=== PATIENT | male | born 1970 | race Caucasian/White ===

== ENCOUNTER 2023-04-07 11:24 | Observation (INO) | payer SELFPAY ==
[2023-04-07] VITALS (7 sets, daily range): BP systolic 140–190; BP diastolic 80–110; PULSE 87–121; RESP 1–22; TEMP 36.8–37.3; O2SAT 97–99; BMI 25.1; BMI 21.9
--- NOTE | 2023-04-07 11:48 | CT_ITS ---
STUDY: CT CERVICAL SPINE WITHOUT CONTRAST REASON FOR EXAM: Male, 52 years old. History of fall. Neck pain. RADIATION DOSAGE (If Supplied By Facility): CTDIvol = ( 23.41 ) mGy, DLP = ( 521.74 ) mGycm TECHNIQUE: High resolution transaxial imaging was performed without contrast material. Sagittal and coronal images were reconstructed. Individualized dose optimization techniques were used for this CT. COMPARISON: None FINDINGS: Normal craniovertebral junction. Normal anterior atlantoaxial articulation. Normal odontoid process. Normal cervical lordosis. Normal vertebral bodies and posterior osseous elements. C2-3: Normal endplates. Normal disc height and morphology. Normal central canal and intervertebral neuroforamina. C3-4: Normal endplates. Normal disc height and morphology. Normal central canal and intervertebral neuroforamina. C4-5: Normal endplates. Normal disc height and morphology. Normal central canal and intervertebral neuroforamina. C5-6: Normal endplates. Normal disc height and morphology. Normal central canal and intervertebral neuroforamina. C6-7: Old fracture of the posterior spinous processes of the C7 vertebrae. C7-T1: Normal endplates. Normal disc height and morphology. Normal central canal and intervertebral neuroforamina. Normal visualized soft tissue structures. CT/Spine Cervical without Contras IMPRESSION: No acute abnormality is seen. Old fracture of the posterior aspect of the spinous processes of the C7 vertebrae. Electronically Signed: Roldan Narvaez MD at 13:00 EDT ,
--- NOTE | 2023-04-07 11:48 | CT_ITS ---
STUDY: CT BRAIN WITHOUT CONTRAST REASON FOR EXAM: Male, 52 years old. Head injury due to a fall. Loss of consciousness. RADIATION DOSAGE (If Supplied By Facility): CTDIvol = ( 44.99 ) mGy, DLP = ( 796.11 ) mGycm TECHNIQUE: Transaxial CT imaging of the brain was performed without administration of intravenous contrast material. Individualized dose optimization techniques were used for this CT. COMPARISON: No relevant priors. FINDINGS: Small scalp hematoma overlying the left posterior parieto-occipital bone. Normal calvarium. There is mild cerebral atrophy with widening of the extra-axial spaces and ventricular dilatation. Normal white matter tracts of the cerebral hemispheres. Normal basal ganglia and thalami. Normal brainstem. Normal cerebellum. There is no intracranial hemorrhage. There are no findings of an acute ischemic infarction. Mucosal thickening of the maxillary sinuses and ethmoid sinuses bilaterally. CT/Brain/Head without Contrast IMPRESSION: Chronic involutional changes of the brain. Small scalp hematoma overlying the left posterior parietal occipital bone. Mucosal thickening of the ethmoid and maxillary sinuses. Electronically Signed: Roldan Narvaez MD at 12:59 EDT ,
--- NOTE | 2023-04-07 11:48 | EKG12_ITS ---
Test Reason : FALL Blood Pressure : / mmHG Vent. Rate : 110 BPM Atrial Rate : 110 BPM P-R Int : 154 ms QRS Dur : 084 ms QT Int : 364 ms P-R-T Axes : 061 032 025 degrees QTc Int : 492 ms Sinus tachycardia Otherwise normal ECG No previous ECGs available Confirmed by DOMO CACREES, REI ([id number]), senior editor JUAN CARLOS BRISENO ([id number]) on 04/12/2023 9:11:56 AM Referred By: CANDICE Confirmed By:REI OLIVEROS MD
--- NOTE | 2023-04-07 11:50 | EX.ED.GENINJ ---
HPI History of Present Illness Chief Complaint: Fall Narrative Narrative: 52-year-old male found unconscious in the parking lot of . He is not sure how long he was down. He does not know if he passed out. Patient reportedly had some alcohol today but he denies this. He has a scrape to the back of his scalp. He appears to be a little confused because he does not know if he drove here or EMS drove him. Denies any injury to the extremities. Patient states he is not on any blood thinners. He denies drug use. He has not had any chest pain or shortness of breath. He denies visual complaints, dizziness, lightheadedness. He does not have any problem moving his extremities. PFSH PFSH Medical History no medical history Allergy/AdvReac Type Severity Reaction Status Date / Time No Known Allergies Allergy Verified 04/07/23 14:30 Family History no significant family his Surgical History no surgical history Social History Smoking Status: Current every day smoker tobacco type: smokeless tobacco ROS ROS ED Constitutional Constitutional ED: Denies chills or fever(s) Eyes Eyes: Denies change in vision ENT ENT ED: Denies rhinorrhea or sore throat Cardiovascular Cardiovascular: Denies chest pain or palpitations Respiratory/Chest Respiratory/Chest: Denies cough or dyspnea Gastrointestinal Gastrointestinal: Denies abdominal pain, nausea or vomiting Genitourinary Genitourinary ED: Denies dysuria or hematuria Musculoskeletal Musculoskeletal: Denies arthralgias Integumentary Denies abscess Neurologic Neurologic: Denies headache(s) or paresthesias Psychiatric Psychiatric: Denies anxiety or depression EXAM Physical Exam Const Vital Signs: 04/07/23 11:25 04/07/23 11:28 04/07/23 12:00 Temperature 98.9 F Temperature Source Temporal Pulse Rate 121 H Pulse Rate [Lying] 118 H Pulse Rate [Standing (for 1 minute prior to obtaining)] 117 H Respiratory Rate 1 L Respiratory Effort Normal Respiratory Depth Normal Respiratory Pattern Normal Blood Pressure 190/110 H Blood Pressure [Lying] 173/97 H Blood Pressure [Sitting (for 1 minute prior to obtaining)] 173/94 H Blood Pressure [Standing (for 1 minute prior to obtaining)] 162/101 H Blood Pressure Mean 136 Blood Pressure Mean [Lying] 122 Blood Pressure Mean [Sitting (for 1 minute prior to obtaining)] 120 Blood Pressure Mean [Standing (for 1 minute prior to obtaining)] 121 Pulse Ox 97 97 Oxygen Delivery Method Room Air Room Air 04/07/23 13:54 04/07/23 15:03 Temperature 98.3 F Temperature Source Temporal Pulse Rate 96 92 Pulse Rate [Lying] Pulse Rate [Standing (for 1 minute prior to obtaining)] Respiratory Rate 20 H 16 Respiratory Effort Respiratory Depth Respiratory Pattern Blood Pressure 167/93 H 161/91 H Blood Pressure [Lying] Blood Pressure [Sitting (for 1 minute prior to obtaining)] Blood Pressure [Standing (for 1 minute prior to obtaining)] Blood Pressure Mean 117 114 Blood Pressure Mean [Lying] Blood Pressure Mean [Sitting (for 1 minute prior to obtaining)] Blood Pressure Mean [Standing (for 1 minute prior to obtaining)] Pulse Ox 99 99 Oxygen Delivery Method Room Air Room Air Positive well nourished and unkempt General Appearance ED: unkempt and NAD HEENT Reports TM's clear HEENT Narrative: Scalp abrasion to the occiput approximately 4 cm and circular. No laceration. No skull deformity. Tympanic Membrane ED: Yes TM's clear Eyes PERRL and EOMs intact bilaterally Chest Wall inspection of chest normal Resp normal respiratory effort and clear to auscultation bilaterally Cardio regular rhythm Rate: tachycardic GI normal to inspection, nondistended, normoactive bowel sounds Back/Spine no thoracic nor lumbar tenderness Cervical Spine: cervical ROM normal Thoracic Spine / Upper Back: Negative for thoracic spinal tenderness Lumbar Spine / Lower Back: Negative for lumbar spinal tenderness Extremity normal to inspection Neuro CN's II-XII intact bilaterally, moves all extremities, no focal motor deficits and no sensory deficits noted Aguilar Coma Scale: document GCS findings Spontaneous Obeys Commands Confused 14 Sensorium / Orientation: alert Psych Psych Narrative: Confused Appearance: unkempt Skin Skin Narrative: Superficial abrasion to the occiput MDM MDM MDM Narrative Medical decision making narrative: 52-year-old male found down in a parking lot unknown downtime. He was in the parking lot of . He denies drug or alcohol use currently. Patient is awake and alert GCS 14 because he is somewhat confused. Superficial abrasion to the scalp. Differential includes assault, syncope, EtOH intoxication, drug overdose, intracranial hemorrhage, dehydration, electrolyte abnormalities. CBC to assess white blood cell count, hemoglobin, platelets, differential. CMP to assess liver function, renal function, electrolytes. EtOH and drug abuse screen to assess for drug and alcohol use. Urinalysis to assess for UTI. Chest x-ray obtained to rule out pneumonia, pneumothorax. CT brain and CT cervical spine will be obtained as well due to head injury and altered mental status. High-sensitivity troponin will be obtained to rule out ischemia and EKG or arrhythmia. CBC shows a leukocytosis of 12.8. Hemoglobin stable at 14.8, platelets 213. Creatinine is elevated today at 1.56. I reviewed the medical record on [facility] and this renal function is typically normal. His electrolytes are normal usually as well. He has a potassium of 3.1 today. His sodium was 120. Glucose 150. He has an anion gap of 28. AST is 84 and ALT is 71. EtOH is negative. Urine drug screen positive for cannabinoids and benzos. Lab work is suggestive of an alcoholic ketoacidosis. His sodium is low today. It is possible the patient could have had a seizure and that is why he was in the parking lot where he was found. And studies negative. Discussed findings with the patient and recommended admission. His brother was present in the room and states that he is a drinker and has been drinking this week. It is possible he could be having withdrawal. Urinalysis is negative for infection. Chest x-ray on my interpretation shows no acute cardiopulmonary process. The radiologist interprets this and agrees. CT brain and cervical spine are negative. Patient initially not amenable to staying in the hospital but is amenable now. He wants to detox as well. Discussed with hospice on admission. Impression: 1. Hypokalemia 2. Hyponatremia 3. Possible seizure 4. Possible syncope 5. Closed head injury 6. History of EtOH abuse Lab Data Attestation: I reviewed the patient's lab results. Labs: Laboratory Results - last 24 hr 04/07/23 04/07/23 04/07/23 11:55 11:55 11:55 WBC 12.8 H RBC 4.47 L Hgb 14.8 Hct 44.4 MCV 99.3 H MCH 33.1 H MCHC 33.3 RDW Std Deviation 42.4 RDW Coeff of Stacey 11.5 L Plt Count 213 MPV 10.5 Immature Gran % (Auto) 0.900 Neut % (Auto) 64.9 Lymph % (Auto) 18.8 L [place] % (Auto) 11.3 H Eos % (Auto) 3.2 Baso % (Auto) 0.9 Absolute Neuts (auto) 8.3 H Absolute Lymphs (auto) 2.40 Nucleated RBC % 0 Sodium 120 L Potassium 3.1 L Chloride 80 L Carbon Dioxide 12.0 L Anion Gap 28 H BUN 6 L Creatinine 1.56 H Estim Creat Clear Calc 56.65 Est GFR (MDRD) Af Amer 61 Est GFR (MDRD) Non-Af 50 L BUN/Creatinine Ratio 3.8 L Glucose 150 H Calcium 8.7 Total Bilirubin 1.00 AST 84 H ALT 71 H Alkaline Phosphatase 85 Troponin I High Sens 10 Total Protein 8.2 Albumin 4.2 Globulin 4.0 Albumin/Globulin Ratio 1.0 Urine Color Urine Clarity Urine pH Ur Specific [place] Urine Protein Urine Glucose (UA) Urine Ketones Urine Occult Blood Urine Nitrite Urine Bilirubin Urine Urobilinogen Ur Leukocyte Esterase Urine RBC Urine WBC Ur Squamous Epith Cells Urine Bacteria Urine Mucus Urine Opiates Screen Urine Methadone Screen Ur Barbiturates Screen Ur Phencyclidine Scrn Ur Amphetamines Screen MDMA (Ecstasy) Screen U Benzodiazepines Scrn Urine Cocaine Screen U Cannabinoids Screen Ur Drug Screen Comment Ethyl Alcohol < 3.0 Acetone Level 04/07/23 04/07/23 04/07/23 12:39 12:39 13:10 WBC RBC Hgb Hct MCV MCH MCHC RDW Std Deviation RDW Coeff of Stacey Plt Count MPV Immature Gran % (Auto) Neut % (Auto) Lymph % (Auto) [place] % (Auto) Eos % (Auto) Baso % (Auto) Absolute Neuts (auto) Absolute Lymphs (auto) Nucleated RBC % Sodium Potassium Chloride Carbon Dioxide Anion Gap BUN Creatinine Estim Creat Clear Calc Est GFR (MDRD) Af Amer Est GFR (MDRD) Non-Af BUN/Creatinine Ratio Glucose Calcium Total Bilirubin AST ALT Alkaline Phosphatase Troponin I High Sens Total Protein Albumin Globulin Albumin/Globulin Ratio Urine Color Yellow Urine Clarity Sl. Cloudy Urine pH 6.0 Ur Specific [place] 1.020 Urine Protein 100 H Urine Glucose (UA) Normal Urine Ketones 50 H Urine Occult Blood 25 H Urine Nitrite Negative Urine Bilirubin Negative Urine Urobilinogen Normal Ur Leukocyte Esterase Negative Urine RBC 0-5 SEEN Urine WBC 0 SEEN Ur Squamous Epith Cells 0-5 SEEN Urine Bacteria 1+ Urine Mucus 0 SEEN Urine Opiates Screen NEGATIVE Urine Methadone Screen NEGATIVE Ur Barbiturates Screen NEGATIVE Ur Phencyclidine Scrn NEGATIVE Ur Amphetamines Screen NEGATIVE MDMA (Ecstasy) Screen NEGATIVE U Benzodiazepines Scrn POSITIVE H Urine Cocaine Screen NEGATIVE U Cannabinoids Screen POSITIVE H Ur Drug Screen Comment Ethyl Alcohol Acetone Level NEGATIVE Radiography Diagnostic Testing: Clinical Impression(s) from Imaging Studies Brain CT 04/07/23 11:48 IMPRESSION: Chronic involutional changes of the brain. Small scalp hematoma overlying the left posterior parietal occipital bone. Mucosal thickening of the ethmoid and maxillary sinuses. Electronically Signed: Roldan Narvaez MD at 12:59 EDT , Cervical Spine CT 04/07/23 11:48 IMPRESSION: No acute abnormality is seen. Old fracture of the posterior aspect of the spinous processes of the C7 vertebrae. Electronically Signed: Roldan Narvaez MD at 13:00 EDT , Chest X-Ray 04/07/23 12:25 IMPRESSION: No acute abnormality is seen. Electronically Signed: Roldan Narvaez MD at 13:01 EDT , Discharge Plan Disposition Disposition: Acute Care Hospital [facility] Discharge Date/Time: 04/07/23 15:32
[2023-04-07 12:03] LABS: Absolute Neutrophil Count 8.3 X10^3/uL (2.0-7.7); Basophil# 0.11 X10^3/uL; Basophil% 0.9 % (0-1); Eosinophil# 0.41 X10^3/uL; Eosinophils% 3.2 % (0-5); Hematocrit 44.4 % (40-54); Hemoglobin 14.8 g/dL (13.0-16.5); Lymphocyte % 18.8 % (19-41); Mean Corp Hgb Conc 33.3 g/dL (32-36); Mean Corpuscular Hgb 33.1 pg (27.0-32.0); Mean Corpuscular Volume 99.3 fL (80-94); Mean Platelet Vol. 10.5 fl (6.2-12.0); Monocyte# 1.44 X10^3/uL; Monocyte% 11.3 % (0-10); NRBC Flagged by Analyzer 0 % (0-5); Neutrophil # 8.28 X10^3/uL (2.7-7.7); Neutrophil % 64.9 % (47-70); Platelet Count 213 K/mm3 (150-450); RBC Distribution Width CV 11.5 % (11.6-14.6); RBC Distribution Width SD 42.4 fl (35.1-43.9); Red Blood Count 4.47 M/mm3 (4.6-6.2); White Blood Count 12.8 K/mm3 (4.4-11.0)
[2023-04-07 12:19] LABS: AST(SGOT) 84 U/L (15-37); Alanine Aminotransfer ALT/SGPT 71 U/L (16-61); Albumin, Serum 4.2 g/dL (3.2-5.0); Alkaline Phosphatase 85 U/L (45-117); Anion Gap 28 (5-15); BUN 6 mg/dL (7-18); BUN/Creat Ratio 3.8 RATIO (10-20); Calcium,Total 8.7 mg/dL (8.5-10.1); Chloride 80 mmol/L (98-107); Creatinine, Serum 1.56 mg/dL (0.70-1.30); EST Glomerular Filtration Rate 50 mL/min (>60); Est Glom Filt Rate - Afr Amer 61 mL/min (>60); Estimated Creatinine Clearance 56.65 ml/min; Glucose 150 mg/dL (74-106); Potassium 3.1 mmol/L (3.5-5.1); Protein, Total 8.2 g/dL (6.4-8.2); Sodium Level 120 mmol/L (136-145); Troponin-I HS 10 pg/mL (3.0-78.0)
--- NOTE | 2023-04-07 12:25 | RAD_ITS ---
STUDY: X-RAY CHEST REASON FOR EXAM: Male, 52 years old. Altered mental status following a fall. TECHNIQUE: Single AP portable view of the chest. COMPARISON: None. FINDINGS: Hyperinflation. The lungs are clear. Scattered calcified granulomas. There is no demonstrated pleural abnormality. Normal size heart. Normal mediastinum and jose maunel. Normal visualized pulmonary arteries. Normal visualized aortic arch and descending thoracic aorta. Normal visualized thoracic spine. Normal visualized ribs, clavicles, and shoulders. There is no demonstrated abnormality of the visualized soft tissue structures of the upper abdomen. RAD/Chest 1 View (Portable) IMPRESSION: No acute abnormality is seen. Electronically Signed: Roldan Narvaez MD at 13:01 EDT ,
[2023-04-07] MEDS: 0.9% Normal Saline 1,000 ML 999 ML IV (12:31)
[2023-04-07 12:44] LABS: Mucous, Urine 0 SEEN /hpf (<or=2+); White Blood Cells 0 SEEN /hpf (0-5)
[2023-04-07 12:54] LABS: Alcohol, Blood (Medical)-Serum < 3.0 mg/dL
[2023-04-07 13:01] LABS: Amphetamine Urine VISTA NEGATIVE (<1000 ng/mL); Barbiturate Urine VISTA NEGATIVE (< 200 ng/mL); Benzodiazepine Urine VISTA POSITIVE (< 200 ng/mL); Cocaine Urine VISTA NEGATIVE (< 300 ng/mL); Ecstacy Urine VISTA NEGATIVE (< 500 ng/mL); Methadone Urine VISTA NEGATIVE (< 300 ng/mL); PCP Urine VISTA NEGATIVE (< 25 ng/mL); THC Urine VISTA POSITIVE (< 50 ng/mL); Vista UDS pH Range 5
[2023-04-07 13:06] LABS: Color, Urine Yellow (Yellow); Glucose, Dipstick Normal (Normal); Ketone-Dipstick 50 mg/dl (Negative); Leukocyte Esterase-Dipstick Negative /ul (Negative); Nitrite-Dipstick Negative (Negative); Occult Blood-Urine 25 /ul (Negative); Protein-Dipstick 100 mg/dl (Negative); Urine Bilirubin Dipstick Negative (Negative); Urine Clarity Sl. Cloudy (Clear); Urine Urobilinogen Normal (Normal)
[2023-04-07 13:26] LABS: Bacteria 1+ /hpf (None Seen); Red Blood Cells-Urine 0-5 SEEN /hpf (0-5); Squamous Epithelial Cells - UA 0-5 SEEN /hpf (0-5)
--- NOTE | 2023-04-07 16:22 | PCM.HP.STD ---
HPI - General General Date of Admission: 04/07/23 Date of Service: 04/07/23 Chief Complaint: unresponsive HPI Narrative BERNADETTE SUN, is a 52 M who presents after being found down in the parking lot. Patient eventually came to. Patient had no recollection of the event but did sustain a superficial abrasion on his occiput. Patient reports that he had a similar episode sometime ago which may have been a seizure. He was stated that he was witnessed shaking at that time. This apparently was unwitnessed. Patient denies any bladder incontinence. Patient was drinking about a 12 pack a day but his last drink was 7 days ago. He stated that after he stopped drinking he had no symptoms related with withdrawal. He is involved with alcoholic Anonymous. He is denying any other need for additional resources. Patient states that he did not have breakfast this morning which is typical. PFS Medical History no medical history no medical history Allergy/AdvReac Type Severity Reaction Status Date / Time No Known Allergies Allergy Verified 04/07/23 14:30 Family History no significant family his Surgical History no surgical history Social History (Updated 04/07/23 @ 16:[address] Meet Claire, ) Smoking Status: Current every day smoker tobacco type: smokeless tobacco alcohol intake: former details: Last reported use was March 2023. substance use type: marijuana ROS ROS Narrative All review of systems were negative except as mentioned above in the history of present illness and the other review of systems. Vital Signs Vital Signs Vital Signs: 04/07/23 11:25 04/07/23 11:28 04/07/23 12:00 Temperature 37.2 C Temperature Source Temporal Pulse Rate 121 H Pulse Rate [Lying] 118 H Pulse Rate [Standing (for 1 minute prior to obtaining)] 117 H Respiratory Rate 1 L Respiratory Effort Normal Respiratory Depth Normal Respiratory Pattern Normal Blood Pressure 190/110 H Blood Pressure [Lying] 173/97 H Blood Pressure [Sitting (for 1 minute prior to obtaining)] 173/94 H Blood Pressure [Standing (for 1 minute prior to obtaining)] 162/101 H Blood Pressure Mean 136 Blood Pressure Mean [Lying] 122 Blood Pressure Mean [Sitting (for 1 minute prior to obtaining)] 120 Blood Pressure Mean [Standing (for 1 minute prior to obtaining)] 121 Pulse Ox 97 97 Oxygen Delivery Method Room Air Room Air 04/07/23 13:54 04/07/23 15:03 Temperature 36.8 C Temperature Source Temporal Pulse Rate 96 92 Pulse Rate [Lying] Pulse Rate [Standing (for 1 minute prior to obtaining)] Respiratory Rate 20 H 16 Respiratory Effort Respiratory Depth Respiratory Pattern Blood Pressure 167/93 H 161/91 H Blood Pressure [Lying] Blood Pressure [Sitting (for 1 minute prior to obtaining)] Blood Pressure [Standing (for 1 minute prior to obtaining)] Blood Pressure Mean 117 114 Blood Pressure Mean [Lying] Blood Pressure Mean [Sitting (for 1 minute prior to obtaining)] Blood Pressure Mean [Standing (for 1 minute prior to obtaining)] Pulse Ox 99 99 Oxygen Delivery Method Room Air Room Air Weight Weight: 65.4 kg Body Mass Index (BMI) 21.9 Physical Exam Narrative - Physical Exam General: Alert, Oriented x3, Cooperative HEENT: Superficial abrasion on the posterior upper occiput., PERRLA, EOMI, Normocephalic Oral: Moist Mucosa, No Gingival or Mucosal Lesions/ Ulcerations Neck: Supple, No JVD, Negative Carotid Bruits Lungs: Clear to auscultation, Normal air movement Cardiovascular: Regular rate, Normal S1, Normal S2, No murmurs Abdomen: Bowel Sounds Present, Soft, Non Tender, Non-Distended, No Hepato-splenomegaly Extremities: No clubbing, No cyanosis, No edema, Capillary Refill Less than 3 Seconds Skin: No rashes, No breakdown Musculoskeletal: No Tenderness to Palpation of Joints or Extremities Neurological: Neuro grossly intact. Cranial nerves II through XII grossly intact muscle strength is 5-5 in upper and lower extremities bilaterally. Gait is steady. Psych/Mental Status: Normal Affect, Appropriate Results Lab / Micro Data Attestation: I reviewed the patient's lab results. Result Diagrams: 04/07/23 11:55 04/07/23 11:55 Labs: Laboratory Results - last 24 hr 04/07/23 11:55: WBC 12.8 H, RBC 4.47 L, Hgb 14.8, Hct 44.4, MCV 99.3 H, MCH 33.1 H, MCHC 33.3, RDW Std Deviation 42.4, RDW Coeff of Stacey 11.5 L, Plt Count 213, MPV 10.5, Immature Gran % (Auto) 0.900, Neut % (Auto) 64.9, Lymph % (Auto) 18.8 L, [place] % (Auto) 11.3 H, Eos % (Auto) 3.2, Baso % (Auto) 0.9, Absolute Neuts (auto) 8.3 H, Absolute Lymphs (auto) 2.40, Nucleated RBC % 0 04/07/23 11:55: Sodium 120 L, Potassium 3.1 L, Chloride 80 L, Carbon Dioxide 12.0 L, Anion Gap 28 H, BUN 6 L, Creatinine 1.56 H, Estim Creat Clear Calc 56.65, Est GFR (MDRD) Af Amer 61, Est GFR (MDRD) Non-Af 50 L, BUN/Creatinine Ratio 3.8 L, Glucose 150 H, Calcium 8.7, Total Bilirubin 1.00, AST 84 H, ALT 71 H, Alkaline Phosphatase 85, Troponin I High Sens 10, Total Protein 8.2, Albumin 4.2, Globulin 4.0, Albumin/Globulin Ratio 1.0 04/07/23 11:55: Ethyl Alcohol < 3.0 04/07/23 12:39: Urine Color Yellow, Urine Clarity Sl. Cloudy, Urine pH 6.0, Ur Specific [place] 1.020, Urine Protein 100 H, Urine Glucose (UA) Normal, Urine Ketones 50 H, Urine Occult Blood 25 H, Urine Nitrite Negative, Urine Bilirubin Negative, Urine Urobilinogen Normal, Ur Leukocyte Esterase Negative, Urine RBC 0-5 SEEN, Urine WBC 0 SEEN, Ur Squamous Epith Cells 0-5 SEEN, Urine Bacteria 1+, Urine Mucus 0 SEEN 04/07/23 12:39: Urine Opiates Screen NEGATIVE, Urine Methadone Screen NEGATIVE, Ur Barbiturates Screen NEGATIVE, Ur Phencyclidine Scrn NEGATIVE, Ur Amphetamines Screen NEGATIVE, MDMA (Ecstasy) Screen NEGATIVE, U Benzodiazepines Scrn POSITIVE H, Urine Cocaine Screen NEGATIVE, U Cannabinoids Screen POSITIVE H, Ur Drug Screen Comment 04/07/23 13:10: Acetone Level NEGATIVE EKG Initial EKG: Attestation: I personally reviewed and interpreted this EKG as follows: Prior EKG tracings: available for review EKG Rhythm Intrepretation: Sinus Rhythm Radiology Impression Brain CT 04/07/23 11:48 IMPRESSION: Chronic involutional changes of the brain. Small scalp hematoma overlying the left posterior parietal occipital bone. Mucosal thickening of the ethmoid and maxillary sinuses. Electronically Signed: Roldan Narvaez MD at 12:59 EDT , Cervical Spine CT 04/07/23 11:48 IMPRESSION: No acute abnormality is seen. Old fracture of the posterior aspect of the spinous processes of the C7 vertebrae. Electronically Signed: Roldan Narvaez MD at 13:00 EDT , Chest X-Ray 04/07/23 12:25 IMPRESSION: No acute abnormality is seen. Electronically Signed: Roldan Narvaez MD at 13:01 EDT , Assessment & Plan Assessment/Plan (1) Seizure: PLAN: Suspected. Other possibilities could be cardiogenic or vasovagal with concussion since he hit his head. Patient had a similar event where he was noted to be shaking. Is unclear if that was a seizure but the patient states that it was a seizure but never sought treatment for it at that time. I did tell the patient that I am concerned that this could be a seizure and recommended work-up with an MRI and an EEG. And if it is concerning that he may need to be in driving restrictions. He is already restricted because he has a DUI can only go to work and drive. Seizure precautions (2) Hyponatremia: PLAN: Unclear etiology. Patient will receive normal saline IV fluids Reevaluate Patient's last drink of alcohol was a week ago so I do not feel that this is beer [place]. Check a TSH and cortisol If it continues to be low would recommend additional work-up for SIADH. (3) Hypokalemia: PLAN: Replace Check magnesium if low PLAN: Plan Tobacco abuse: Does not smoke or vape. But uses a smokeless tobacco. Alcohol abuse: Patient's last drink was a week ago. Patient follows with AA. Patient does not require treatment for alcohol withdrawal. Add a multivitamin. Patient declines any additional resources for alcohol abuse. VTE prophylaxis: Not indicated given observation status. Charges/Coding Visit Charges Inpatient E&M: 27043 Init Hosp L3
--- NOTE | 2023-04-07 16:35 | MRI_ITS ---
STUDY: MRI BRAIN WITHOUT CONTRAST REASON FOR EXAM: Male, 52 years old. Seizure. TECHNIQUE: Standardized multiplanar fat and water weighted pulse sequences were obtained. COMPARISON: April 07, 2023 CT brain. HEMISPHERES, CEREBELLUM AND BRAINSTEM: No restricted diffusion to suggest an acute infarct. No acute parenchymal hemorrhage. No mass, vasogenic edema or midline shift. Mild parenchymal volume loss and small vessel ischemic disease changes. Infundibulum and pituitary have normal configuration. Midline structures appear normal. CSF SPACES: No acute extra-axial hemorrhage. No hydrocephalus. Basal cisterns are patent. No abnormal extra-axial fluid collection. VESSELS: There are normal flow voids noted in the great vessels at the skull base ORBITS AND PARANASAL SINUSES: Both globes, extraocular muscles, optic nerves and retrobulbar fat appear unremarkable. Paranasal sinuses are clear. BONY ELEMENTS: Bony elements of the cranial vault, facial skeleton and skull base have normal appearance. SCALP AND SOFT TISSUES: No significant abnormality. Small high left parietal scalp soft tissue swelling is less conspicuous than on prior CT imaging. MRI/Brain without Contrast IMPRESSION: No acute intracranial findings. Electronically Signed: Ian Biswas MD at 20:37 EDT ,
--- NOTE | 2023-04-07 16:35 | ECHOD_ITS ---
Reason For Study: SYNCOPE Procedure This was a 2D Doppler, Color Flow transthoracic echocardiogram. Exam performed portable in patient room. Left Ventricle Normal LV size. The estimated ejection fraction is 40-45 %. Right Ventricle Normal right ventricle. Normal systolic function. Atria Normal left atrium. Normal right atrium. Mitral Valve The mitral valve is structurally normal. No prolapse or stenosis seen. Trivial mitral valve insufficiency. Tricuspid Valve Normal tricuspid valve. Aortic Valve The aortic valve is not well visualized in the short axis view. Pulmonic Valve The pulmonic valve is not well visualized. Great Vessels Normal aortic root. Pericardium/Pleural No pericardial effusion. MMode/2D Measurements & Calculations LVIDd: 4.2 cm IVSd: 1.1 cm LAV(MOD-sp4): 38.3 ml LVIDs: 3.7 cm LVPWd: 1.4 cm FS: 11.6 % LVAd ap4: 25.6 cm2 SV(MOD-sp4): 32.0 ml SV(sp4-el): 30.8 ml LVLd ap4: 7.8 cm EDV(MOD-sp4): 71.5 ml EDV(sp4-el): 72.0 ml LVAs ap4: 18.0 cm2 LVLs ap4: 6.7 cm ESV(MOD-sp4): 39.5 ml ESV(sp4-el): 41.2 ml EF(MOD-sp4): 44.7 % EF(sp4-el): 42.8 % LA A4 area: 14.3 cm2 LA dimension(2D): 2.6 cm RA A4 area: 11.6 cm2 Time Measurements MV dec time: 0.22 sec Doppler Measurements & Calculations MV E max nemesio: 73.8 cm/sec Lat Peak E' Nemesio: 14.5 cm/sec Med Peak E' Nemesio: 11.1 cm/sec MV A max nemesio: 61.8 cm/sec E/E' lat: 5.1 E/E' med: 6.6 MV E/A: 1.2 MV V2 max: 73.5 cm/sec Ao V2 max: 110.7 cm/sec MV max P.2 mmHg MV dec slope: 333.8 cm/sec2 Ao max P.9 mmHg MV V2 mean: 55.1 cm/sec Ao V2 mean: 77.7 cm/sec MV mean P.3 mmHg Ao mean P.8 mmHg MV V2 VTI: 22.5 cm Ao V2 VTI: 20.1 cm AV (velocity ratio): 0.75 LV V1 max: 91.1 cm/sec LV V1 max P.4 mmHg LV V1 mean P.8 mmHg LV V1 mean: 60.5 cm/sec LV V1 VTI: 15.1 cm ECHO/Echo Complete Interpretation Summary The estimated ejection fraction is 40-45 %. Mild to moderate LV systolic dysfunction No significant valvular abnormality No pericardial effusion No prior echocardiogram to compare Ordering Physician: Meet Claire Referring Physician: Carlos A Pantoja MD Performed By: Jacqui Ordonez RCS
[2023-04-07] MEDS: 0.9% Normal Saline 1,000 ML 150 ML IV (16:54)
[2023-04-07] MEDS: Potassium Chloride 10mEq/100mL 10 MEQ/100 ML IV.SOLN. 100 MEQ IV BOLUS ×4 (17:02→23:02)
[2023-04-07 17:16] LABS: Anion Gap 9 (5-15); BUN 4 mg/dL (7-18); BUN/Creat Ratio 4.9 RATIO (10-20); Calcium,Total 8.7 mg/dL (8.5-10.1); Chloride 90 mmol/L (98-107); Creatinine, Serum 0.81 mg/dL (0.70-1.30); EST Glomerular Filtration Rate 107 mL/min (>60); Est Glom Filt Rate - Afr Amer 130 mL/min (>60); Estimated Creatinine Clearance 100.93 ml/min; Glucose 93 mg/dL (74-106); Potassium 3.5 mmol/L (3.5-5.1); Sodium Level 126 mmol/L (136-145)
[2023-04-07] MEDS: Potassium Chloride Oral Tablet 20 MEQ 40 MEQ PO (17:32)
[2023-04-07] MEDS: Acetaminophen 325 MG Tablet 650 MG PO (17:32)
[2023-04-07 20:58] LABS: Phosphorus 3.2 mg/dL (2.5-4.9)
[2023-04-08 03:10] VITALS: BP 151/89; PULSE 76; RESP 18; TEMP 36.7; O2SAT 99
[2023-04-08 05:14] LABS: Absolute Lymphocyte Count 1.32 X10^3/uL (0.83-4.51); Absolute Neutrophil Count 3.9 X10^3/uL (2.0-7.7); Basophil# 0.04 X10^3/uL; Basophil% 0.6 % (0-1); Eosinophil# 0.36 X10^3/uL; Eosinophils% 5.4 % (0-5); Hematocrit 40.1 % (40-54); Hemoglobin 13.9 g/dL (13.0-16.5); Lymphocyte # 1.32 X10^3/ul (0.83-4.51); Lymphocyte % 19.9 % (19-41); Mean Corp Hgb Conc 34.7 g/dL (32-36); Mean Corpuscular Hgb 33.3 pg (27.0-32.0); Mean Corpuscular Volume 95.9 fL (80-94); Mean Platelet Vol. 9.7 fl (6.2-12.0); Monocyte# 0.95 X10^3/uL; Monocyte% 14.4 % (0-10); NRBC Flagged by Analyzer 0 % (0-5); Neutrophil # 3.93 X10^3/uL (2.7-7.7); Neutrophil % 59.4 % (47-70); Platelet Count 172 K/mm3 (150-450); RBC Distribution Width CV 11.9 % (11.6-14.6); RBC Distribution Width SD 42.3 fl (35.1-43.9); Red Blood Count 4.18 M/mm3 (4.6-6.2); White Blood Count 6.6 K/mm3 (4.4-11.0)
[2023-04-08 05:53] LABS: AST(SGOT) 73 U/L (15-37); Alanine Aminotransfer ALT/SGPT 54 U/L (16-61); Albumin, Serum 3.4 g/dL (3.2-5.0); Alkaline Phosphatase 57 U/L (45-117); Anion Gap 4 (5-15); BUN 5 mg/dL (7-18); BUN/Creat Ratio 5.8 RATIO (10-20); Calcium,Total 8.8 mg/dL (8.5-10.1); Chloride 106 mmol/L (98-107); Creatinine, Serum 0.86 mg/dL (0.70-1.30); EST Glomerular Filtration Rate 100 mL/min (>60); Est Glom Filt Rate - Afr Amer 121 mL/min (>60); Estimated Creatinine Clearance 95.06 ml/min; Globulin 3.5 g/dL (2.2-4.2); Glucose 120 mg/dL (74-106); Potassium 4.1 mmol/L (3.5-5.1); Protein, Total 6.9 g/dL (6.4-8.2); Sodium Level 138 mmol/L (136-145); Thyroid Stim Hormone (TSH) 1.42 uIU/mL (0.358-3.74)
--- NOTE | 2023-04-08 07:35 | PCM.PN.HOSP ---
Reason for Visit Reason for Visit: Diagnoses Hypo-osmolality and hyponatremia (04/07/23) Hypokalemia (04/07/23) Alcohol abuse, uncomplicated (04/07/23) Unspecified convulsions (04/07/23) Subjective Subjective Feeling better. Now notes he was not feeling well before the event with nausea. Objective Data Objective Data Vital Signs: Vital Signs Temp Pulse Resp BP Pulse Ox O2 Del Method 36.7 C 76 18 151/89 H 99 Room Air 04/08/23 03:10 04/08/23 03:10 04/08/23 03:10 04/08/23 03:10 04/08/23 03:10 04/08/23 03:10 Oxygen Delivery Method Room Air Weight: 65.4 kg Body Mass Index (BMI) 21.9 Intake & Output: Intake and Output for Last 24 Hours 04/06/23 04/07/23 04/08/23 23:59 23:59 23:59 Intake Total 1567.5 / 1567.5 832.5 / 832.5 Output Total 700 / 700 500 / 500 Balance 867.5 / 867.5 332.5 / 332.5 Lab / Micro Data Result Diagrams: 04/08/23 04:55 04/08/23 04:55 Labs: Laboratory Results - last 24 hr 04/07/23 11:55: WBC 12.8 H, RBC 4.47 L, Hgb 14.8, Hct 44.4, MCV 99.3 H, MCH 33.1 H, MCHC 33.3, RDW Std Deviation 42.4, RDW Coeff of Stacey 11.5 L, Plt Count 213, MPV 10.5, Immature Gran % (Auto) 0.900, Neut % (Auto) 64.9, Lymph % (Auto) 18.8 L, [place] % (Auto) 11.3 H, Eos % (Auto) 3.2, Baso % (Auto) 0.9, Absolute Neuts (auto) 8.3 H, Absolute Lymphs (auto) 2.40, Nucleated RBC % 0 04/07/23 11:55: Sodium 120 L, Potassium 3.1 L, Chloride 80 L, Carbon Dioxide 12.0 L, Anion Gap 28 H, BUN 6 L, Creatinine 1.56 H, Estim Creat Clear Calc 56.65, Est GFR (MDRD) Af Amer 61, Est GFR (MDRD) Non-Af 50 L, BUN/Creatinine Ratio 3.8 L, Glucose 150 H, Calcium 8.7, Total Bilirubin 1.00, AST 84 H, ALT 71 H, Alkaline Phosphatase 85, Troponin I High Sens 10, Total Protein 8.2, Albumin 4.2, Globulin 4.0, Albumin/Globulin Ratio 1.0 04/07/23 11:55: Ethyl Alcohol < 3.0 04/07/23 12:39: Urine Color Yellow, Urine Clarity Sl. Cloudy, Urine pH 6.0, Ur Specific [place] 1.020, Urine Protein 100 H, Urine Glucose (UA) Normal, Urine Ketones 50 H, Urine Occult Blood 25 H, Urine Nitrite Negative, Urine Bilirubin Negative, Urine Urobilinogen Normal, Ur Leukocyte Esterase Negative, Urine RBC 0-5 SEEN, Urine WBC 0 SEEN, Ur Squamous Epith Cells 0-5 SEEN, Urine Bacteria 1+, Urine Mucus 0 SEEN 04/07/23 12:39: Urine Opiates Screen NEGATIVE, Urine Methadone Screen NEGATIVE, Ur Barbiturates Screen NEGATIVE, Ur Phencyclidine Scrn NEGATIVE, Ur Amphetamines Screen NEGATIVE, MDMA (Ecstasy) Screen NEGATIVE, U Benzodiazepines Scrn POSITIVE H, Urine Cocaine Screen NEGATIVE, U Cannabinoids Screen POSITIVE H, Ur Drug Screen Comment 04/07/23 13:10: Acetone Level NEGATIVE 04/07/23 16:45: Sodium 126 L, Potassium 3.5, Chloride 90 L, Carbon Dioxide 27.0, Anion Gap 9, BUN 4 L, Creatinine 0.81, Estim Creat Clear Calc 100.93, Est GFR (MDRD) Af Amer 130, Est GFR (MDRD) Non-Af 107, BUN/Creatinine Ratio 4.9 L, Glucose 93, Calcium 8.7 04/07/23 16:45: Phosphorus 3.2, Magnesium 2.0 04/08/23 04:55: Sodium 138, Potassium 4.1, Chloride 106, Carbon Dioxide 28.0, Anion Gap 4 L, BUN 5 L, Creatinine 0.86, Estim Creat Clear Calc 95.06, Est GFR (MDRD) Af Amer 121, Est GFR (MDRD) Non-Af 100, BUN/Creatinine Ratio 5.8 L, Glucose 120 H, Calcium 8.8, Total Bilirubin 1.00, AST 73 H, ALT 54, Alkaline Phosphatase 57, Total Protein 6.9, Albumin 3.4, Globulin 3.5, Albumin/Globulin Ratio 1.0, TSH 1.42 04/08/23 04:55: Cortisol 16.30 04/08/23 04:55: WBC 6.6, RBC 4.18 L, Hgb 13.9, Hct 40.1, MCV 95.9 H, MCH 33.3 H, MCHC 34.7, RDW Std Deviation 42.3, RDW Coeff of Stacey 11.9, Plt Count 172, MPV 9.7, Immature Gran % (Auto) 0.300, Neut % (Auto) 59.4, Lymph % (Auto) 19.9, [place] % (Auto) 14.4 H, Eos % (Auto) 5.4 H, Baso % (Auto) 0.6, Absolute Neuts (auto) 3.9, Absolute Lymphs (auto) 1.32, Nucleated RBC % 0 Radiography Diagnostic Testing: Radiology Impression Brain CT 04/07/23 11:48 IMPRESSION: Chronic involutional changes of the brain. Small scalp hematoma overlying the left posterior parietal occipital bone. Mucosal thickening of the ethmoid and maxillary sinuses. Electronically Signed: Roldan Narvaez MD at 12:59 EDT , Cervical Spine CT 04/07/23 11:48 IMPRESSION: No acute abnormality is seen. Old fracture of the posterior aspect of the spinous processes of the C7 vertebrae. Electronically Signed: Roldan Narvaez MD at 13:00 EDT , Chest X-Ray 04/07/23 12:25 IMPRESSION: No acute abnormality is seen. Electronically Signed: Roldan Narvaez MD at 13:01 EDT , Brain MRI 04/07/23 16:35 IMPRESSION: No acute intracranial findings. Electronically Signed: Ian Biswas MD at 20:37 EDT , Physical Exam Const alert and no apparent distress HEENT head/scalp atraumatic and moist oral mucous membranes Assessment & Plan Assessment/Plan (1) Vasovagal syncope: PLAN: Suspect vasovagal syncope with post-concussion syndrome. Patient had a similar event where he was noted to be shaking. Is unclear if that was a seizure but the patient states that it was a seizure but never sought treatment for it at that time. I did tell the patient that I am concerned that this could be a seizure and recommended work-up with an MRI and an EEG. And if it is concerning that he may need to be in driving restrictions. He is already restricted because he has a DUI can only go to work and drive. Seizure precautions Pt has superficial abrasion on upper posterior occiput, no sutures/dariana required (2) Seizure: PLAN: ruled out (3) Hyponatremia: PLAN: Unclear etiology. Patient will receive normal saline IV fluids Reevaluate Patient's last drink of alcohol was a week ago so I do not feel that this is beer [place] art[place]. TSH and cortisol WNL (4) Hypokalemia: PLAN: Resolved after replacement Magnesium 2 (5) Hypertension: PLAN: Add lisinopril PLAN: Plan Tobacco abuse: Does not smoke or vape. But uses a smokeless tobacco. Alcohol abuse: Patient's last drink was a week ago. Patient follows with AA. Patient does not require treatment for alcohol withdrawal. Add a multivitamin. Patient declines any additional resources for alcohol abuse. VTE prophylaxis: Not indicated given observation status.
[2023-04-08] MEDS: Multivitamins,Therapeutic Tablet 1 TABLET PO (07:59)
[2023-04-08 08:10] VITALS: BP 149/87; PULSE 95; RESP 16; TEMP 36.6; O2SAT 97
[2023-04-08 08:16] VITALS: PULSE 83
[2023-04-08] MEDS: Lisinopril 20 MG Tablet PO (09:40)
--- NOTE | 2023-04-08 10:39 | CASEMGMT ---
Social Work SW met with pt to discuss alcohol use and financial concerns as pt has no health insurance. SW introduced self and role of SW. Pt guarded with responses and indicates disinterest in assistance from SW at this time. Pt states that he is employed but does not have insurance. 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 SW attempted to discuss further with pt but pt was dismissive. Pt was agreeable for information to be left in the room. When SW inquired about alcohol use pt states he started seeing a counselor at [facility] two weeks ago and has no other needs. SW left information on prescription assistance, [facility], Medicaid, Advance Directive Rack Card, and alcohol recovery services in pt room. RONAN Cannon
--- NOTE | 2023-04-08 10:45 | CASEMGMT ---
Social Work Pt denies having a living will and health care POA. Pt is not interested in discussing at this time. Advance Directive rack card provided. RONAN Cannon
--- NOTE | 2023-04-08 11:03 | DCINST_ITS ---
Discharge Instructions Diet Discharge Diet: No restrictions Dressing / Incision Call your doctor if you observe: Fainting spells Follow Up Care Test Results: Test results from this visit will be discussed in further detail at your follow- up appointment, if applicable. Discharge Plan Admission Admit Date/Time: 04/07/23 16:17 Primary Reason for Your Visit: syncope Attending Provider: Meet Claire Primary Care Provider: Carlos A Pantoja Discharge Orders/Prescriptions Prescriptions: New lisinopril 20 mg Tablet 20 mg PO DAILY Qty: 30 0RF multivitamin Tablet 1 tab PO BREAKFAST Qty: 0 0RF Referrals / Follow Up: Carlos A Pantoja MD [Primary Care Provider] - Within 2 Weeks Disposition Disposition (needs filled in before D/C Order can be placed): Home, Self Care
--- NOTE | 2023-04-08 11:06 | PCM.DC.SUM ---
Providers Date of Admission: 04/07/23 Primary Care Physician: Dr. Carlos A Pantoja MD Reason For Visit: SYNOPE Diagnosis Discharge Diagnosis (1) Vasovagal syncope: Status: Acute Code(s): R55 - Syncope and collapse Plan: Suspect vasovagal syncope with post-concussion syndrome. Patient had a similar event where he was noted to be shaking. Is unclear if that was a seizure but the patient states that it was a seizure but never sought treatment for it at that time. I did tell the patient that I am concerned that this could be a seizure and recommended work-up with an MRI and an EEG. And if it is concerning that he may need to be in driving restrictions. He is already restricted because he has a DUI can only go to work and drive. Seizure precautions Pt has superficial abrasion on upper posterior occiput, no sutures/dariana required (2) Seizure: Status: Acute Code(s): R56.9 - Unspecified convulsions Plan: ruled out (3) Hyponatremia: Status: Acute Code(s): E87.1 - Hypo-osmolality and hyponatremia Plan: Unclear etiology. Patient will receive normal saline IV fluids Reevaluate Patient's last drink of alcohol was a week ago so I do not feel that this is beer Poto arturo. TSH and cortisol WNL (4) Hypokalemia: Status: Acute Code(s): E87.6 - Hypokalemia Plan: Resolved after replacement Magnesium 2 (5) Hypertension: Status: Chronic Code(s): I10 - Essential (primary) hypertension Plan: Add lisinopril Plan Tobacco abuse: Does not smoke or vape. But uses a smokeless tobacco. Alcohol abuse: Patient's last drink was a week ago. Patient follows with AA. Patient does not require treatment for alcohol withdrawal. Add a multivitamin. Patient declines any additional resources for alcohol abuse. VTE prophylaxis: Not indicated given observation status. Medications at Discharge Home Medications lisinopril 20 mg tablet 20 mg PO DAILY #30 tabs 04/08/23 multivitamin 1 tab PO BREAKFAST #0 tabs 04/08/23 Hospital Course Operations None Procedures 2-D Echocardiogram Summary of Care Provided Minutes Spent on Discharge: 28 Medical Records Data Medical Nutrition Assessment Dietitian: Malnutrition Criteria Met Start: 04/08/23 10:32 Freq: Status: Active Protocol: Document 04/08/23 10:32 SLA (Rec: 04/08/23 10:32 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 Weight / BMI Weight Weight: 65.4 kg Body Mass Index (BMI) 21.9 ABG / Lab / Microbiology Data Result Diagrams: 04/08/23 04:55 04/08/23 04:55 Laboratory: Laboratory Results - last 24 hr 04/07/23 11:55: WBC 12.8 H, RBC 4.47 L, Hgb 14.8, Hct 44.4, MCV 99.3 H, MCH 33.1 H, MCHC 33.3, RDW Std Deviation 42.4, RDW Coeff of Stacey 11.5 L, Plt Count 213, MPV 10.5, Immature Gran % (Auto) 0.900, Neut % (Auto) 64.9, Lymph % (Auto) 18.8 L, [place] % (Auto) 11.3 H, Eos % (Auto) 3.2, Baso % (Auto) 0.9, Absolute Neuts (auto) 8.3 H, Absolute Lymphs (auto) 2.40, Nucleated RBC % 0 04/07/23 11:55: Sodium 120 L, Potassium 3.1 L, Chloride 80 L, Carbon Dioxide 12.0 L, Anion Gap 28 H, BUN 6 L, Creatinine 1.56 H, Estim Creat Clear Calc 56.65, Est GFR (MDRD) Af Amer 61, Est GFR (MDRD) Non-Af 50 L, BUN/Creatinine Ratio 3.8 L, Glucose 150 H, Calcium 8.7, Total Bilirubin 1.00, AST 84 H, ALT 71 H, Alkaline Phosphatase 85, Troponin I High Sens 10, Total Protein 8.2, Albumin 4.2, Globulin 4.0, Albumin/Globulin Ratio 1.0 04/07/23 11:55: Ethyl Alcohol < 3.0 04/07/23 12:39: Urine Color Yellow, Urine Clarity Sl. Cloudy, Urine pH 6.0, Ur Specific [place] 1.020, Urine Protein 100 H, Urine Glucose (UA) Normal, Urine Ketones 50 H, Urine Occult Blood 25 H, Urine Nitrite Negative, Urine Bilirubin Negative, Urine Urobilinogen Normal, Ur Leukocyte Esterase Negative, Urine RBC 0-5 SEEN, Urine WBC 0 SEEN, Ur Squamous Epith Cells 0-5 SEEN, Urine Bacteria 1+, Urine Mucus 0 SEEN 04/07/23 12:39: Urine Opiates Screen NEGATIVE, Urine Methadone Screen NEGATIVE, Ur Barbiturates Screen NEGATIVE, Ur Phencyclidine Scrn NEGATIVE, Ur Amphetamines Screen NEGATIVE, MDMA (Ecstasy) Screen NEGATIVE, U Benzodiazepines Scrn POSITIVE H, Urine Cocaine Screen NEGATIVE, U Cannabinoids Screen POSITIVE H, Ur Drug Screen Comment 04/07/23 13:10: Acetone Level NEGATIVE 04/07/23 16:45: Sodium 126 L, Potassium 3.5, Chloride 90 L, Carbon Dioxide 27.0, Anion Gap 9, BUN 4 L, Creatinine 0.81, Estim Creat Clear Calc 100.93, Est GFR (MDRD) Af Amer 130, Est GFR (MDRD) Non-Af 107, BUN/Creatinine Ratio 4.9 L, Glucose 93, Calcium 8.7 04/07/23 16:45: Phosphorus 3.2, Magnesium 2.0 04/08/23 04:55: Sodium 138, Potassium 4.1, Chloride 106, Carbon Dioxide 28.0, Anion Gap 4 L, BUN 5 L, Creatinine 0.86, Estim Creat Clear Calc 95.06, Est GFR (MDRD) Af Amer 121, Est GFR (MDRD) Non-Af 100, BUN/Creatinine Ratio 5.8 L, Glucose 120 H, Calcium 8.8, Total Bilirubin 1.00, AST 73 H, ALT 54, Alkaline Phosphatase 57, Total Protein 6.9, Albumin 3.4, Globulin 3.5, Albumin/Globulin Ratio 1.0, TSH 1.42 04/08/23 04:55: Cortisol 16.30 04/08/23 04:55: WBC 6.6, RBC 4.18 L, Hgb 13.9, Hct 40.1, MCV 95.9 H, MCH 33.3 H, MCHC 34.7, RDW Std Deviation 42.3, RDW Coeff of Stacey 11.9, Plt Count 172, MPV 9.7, Immature Gran % (Auto) 0.300, Neut % (Auto) 59.4, Lymph % (Auto) 19.9, [place] % (Auto) 14.4 H, Eos % (Auto) 5.4 H, Baso % (Auto) 0.6, Absolute Neuts (auto) 3.9, Absolute Lymphs (auto) 1.32, Nucleated RBC % 0 Radiography Diagnostic Testing: Radiology Impression Brain CT 04/07/23 11:48 IMPRESSION: Chronic involutional changes of the brain. Small scalp hematoma overlying the left posterior parietal occipital bone. Mucosal thickening of the ethmoid and maxillary sinuses. Electronically Signed: Roldan Narvaez MD at 12:59 EDT , Cervical Spine CT 04/07/23 11:48 IMPRESSION: No acute abnormality is seen. Old fracture of the posterior aspect of the spinous processes of the C7 vertebrae. Electronically Signed: Roldan Narvaez MD at 13:00 EDT , Chest X-Ray 04/07/23 12:25 IMPRESSION: No acute abnormality is seen. Electronically Signed: Roldan Narvaez MD at 13:01 EDT , Brain MRI 04/07/23 16:35 IMPRESSION: No acute intracranial findings. Electronically Signed: Ian Biswas MD at 20:37 EDT , D/C Instructions Discharge Diet: No restrictions Call your doctor if you observe: Fainting spells Meaningful Use Info Meaningful Use Diagnoses (Choose all that apply): None applicable Discharge Plan Admission Admit Date/Time: 04/07/23 16:17 Primary Reason for Your Visit: syncope Attending Provider: Meet Claire Primary Care Provider: Carlos A Pantoja Discharge Orders/Prescriptions Prescriptions: New lisinopril 20 mg Tablet 20 mg PO DAILY Qty: 30 0RF multivitamin Tablet 1 tab PO BREAKFAST Qty: 0 0RF Referrals / Follow Up: Carlos A Pantoja MD [Primary Care Provider] - Within 2 Weeks Disposition Disposition (needs filled in before D/C Order can be placed): Home, Self Care Charges/Coding Visit Charges Inpatient E&M: 93520 Disch Hosp
[2023-04-08 11:26] VITALS: BP 137/83; PULSE 109; RESP 16; TEMP 36.6; O2SAT 96
--- NOTE | 2023-04-08 11:26 | ADDICTION ---
This headline writer met with PT to conduct ASAM, MSE, AUDIT, DUDIT assessments and to plan for d/c. PT A+Ox4 and participated actively. All assessments completed and placed in PT's chart. PT plans to f/u with [facility] for follow-up outpatient treatment services. He reports he does not need transportation post discharge.
--- NOTE | 2023-04-08 11:31 | PHA.DC.MC ---
Pharmacy Service has performed discharge medication reconciliation and counseling for this patient. 1. LISINOPRIL 20MG PO DAILY 2. MULTIVITAMIN 1T PO BREAKFAST The patient's discharge medication list was reviewed for discrepancies and discrepancies were resolved. Home Medications lisinopril 20 mg tablet 20 mg PO DAILY #30 tabs 04/08/23 multivitamin 1 tab PO BREAKFAST #0 tabs 04/08/23 The patient was counseled on the following discharge medications and changes in medications for homegoing were reviewed. The Reason for Use, instructions for use, and potential side effects were reviewed for all new medications. The patient's questions regarding all of their medications were answered. The patient was able to verbally demonstrate an understanding of their discharge medications.
== END 2023-04-08 14:00 | disposition home or self-care (01) ==
LOC: ED 13:23 → MS3 16:30
PROVIDERS: Family Medicine; Emergency Provider Student in an Organized Health Care Education/Training Program; PCP Family Medicine
DX: R55 Syncope and collapse (principal); E87.1 Hypo-osmolality and hyponatremia; W19.XXXA Unspecified fall, initial encounter; Y92.481 Parking lot as the place of occurrence of the external cause; F10.10 Alcohol abuse, uncomplicated; S00.01XA Abrasion of scalp, initial encounter; F17.220 Nicotine dependence, chewing tobacco, uncomplicated; E87.6 Hypokalemia
CPT/HCPCS: 36415; 70450; 70551; 71045; 72125; 80048; 80053; 80307; 81001; 82009; 82077; 82533; 83735; 84100; 84443; 84484; 85025; 93005; 93306; 95819; 96361; 96365; 96366; 97802; 99221; 99285; 99406; J7030; A4216; G0378